=== PATIENT | male | born 1950 | race Caucasian/White ===

== ENCOUNTER 2023-08-24 09:39 | Emergency (ER) | payer MEDICARE, OTHER, SELFPAY ==
[2023-08-24] VITALS (18 sets, daily range): BP systolic 183–203; BP diastolic 97–98; PULSE 54–63; RESP 11–23; TEMP 36.6; O2SAT 92–94; BMI 34.2
--- NOTE | 2023-08-24 10:03 | ECG_ITS ---
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
[2023-08-24] MEDS: METHYLPREDNISOLONE SOD SUCC PF 125 MG/2 ML VIAL IVP (10:17)
[2023-08-24] MEDS: MORPHINE SULFATE 4 MG/ML VIAL IV (10:17)
[2023-08-24 10:18] LABS: Basophils Absolute Auto 0.1 10^3/uL (0.0-0.1); Basophils Percent Auto 1.1 % (0.2-2.0); Eosinophils Absolute Auto 0.2 10^3/uL (0.0-0.7); Eosinophils Percent Auto 2.4 % (0.9-7.0); Hematocrit 45.8 % (42.0-54.0); Hemoglobin 15.3 g/dL (14.0-18.0); Immature Granulocytes Abs Auto 0.02 10^3/uL (0.00-0.03); Immature Granulocytes Pct Auto 0.3 % (0.0-0.5); Lymphocytes Absolute Auto 1.5 10^3/uL (1.2-3.8); Lymphocytes Percent Auto 23.2 % (20.5-60.0); Mean Corpuscular HGB Conc 33.4 g/dL (29.9-35.2); Mean Corpuscular Hemoglobin 29.8 pg (25.9-34.0); Mean Corpuscular Volume 89.1 fL (80.0-94.0); Mean Platelet Volume 10.2 fL (9.5-13.5); Monocytes Absolute Auto 0.8 10^3/uL (0.3-0.8); Monocytes Percent Auto 12.5 % (1.7-12.0); Neutrophils Percent Auto 60.5 % (43.0-75.0); Platelet Count 235 10^3/uL (150-450); Red Blood Count 5.14 10^6/uL (4.70-6.10); Red Cell Distribution Width 14.2 % (11.0-15.0); White Blood Count 6.5 10^3/uL (4.0-11.0)
[2023-08-24 10:29] LABS: Anion Gap 14.1; BUN Creatinine Ratio 24.1; Calcium 8.8 mg/dL (8.5-10.1); Carbon Dioxide 26.2 mmol/L (21.0-32.0); Chloride 102 mmol/L (98-107); Estimated GFR (African America >60 (>=60); Estimated GFR (Non-African Ame >60 (>=60); Glucose 105 mg/dL (74-106); Potassium 4.3 mmol/L (3.5-5.1); Sodium 138 mmol/L (136-145)
[2023-08-24 10:47] LABS: Troponin I High Sensitivity 92.5 pg/mL (4.0-76.1)
--- NOTE | 2023-08-24 12:00 | ED_ITS ---
HPI - General Adult General Chief complaint: Headache Stated complaint: HEADACHE/ HIGH BLOOD PRESSURE Time Seen by Provider: 08/24/23 09:49 Source: patient and family Mode of arrival: Wheelchair Limitations: no limitations History of Present Illness HPI narrative: 72-year-old male presents for vague reasons. He seems to be complaining mostly of a headache that he has had every day. Initially he told me that was about 2 months but then he changed that to 6 months. He has had 3 emergency department visits at another hospital in the last week and he seen a neurologist. He states he had an MRI. No trauma fever or localized weakness. Related Data Home Medications Medication Instructions Recorded Confirmed acyclovir 400 mg tablet 400 mg PO Q12H 08/24/23 08/24/23 hydroxyzine HCl 25 mg tablet 25 mg PO Q8H 08/24/23 08/24/23 levofloxacin 500 mg tablet 500 mg PO Q24H 08/24/23 08/24/23 losartan 50 mg tablet 50 mg PO DAILY 08/24/23 08/24/23 tamsulosin 0.4 mg capsule 0.4 mg PO Q24H 08/24/23 08/24/23 tramadol 50 mg tablet 50 mg PO Q8H PRN pain 08/24/23 08/24/23 Previous Rx's Medication Instructions Recorded [id number]-sjkuihmwhnuma-dbrehphx 1 cap PO Q6H PRN pain 5 days #20 08/24/23 50 mg-300 mg-40 mg capsule caps (Fioricet) Allergies Allergy/AdvReac Type Severity Reaction Status Date / Time No Known Drug Allergies Allergy Verified 08/24/23 09:55 Review of Systems ROS Narrative A ten point review of systems is negative except as noted above. PFSH PFSH Social History Smoking status: Former smoker Exam Narrative Exam Narrative: Nurses note and vital signs reviewed and patient is not hypoxic. General: The patient appears well and in no apparent distress. He seems to prefer to keep his eyes closed. Skin: Warm, dry, no pallor noted. There is no rash noted. Head: Normocephalic, atraumatic Eye: Normal conjunctiva, no drainage, EOMI. PERRL Ears, Nose, Mouth, and Throat: oral mucosa is moist. Nares patent. Cardiovascular: Regular Rate and Rhythm Respiratory: Patient is in no distress, no accessory muscle use, lungs are clear to auscultation, no wheezing, rales or rhonchi Back: non-tender GI: Soft and nontender Musculoskeletal: The patient has no evidence of calf tenderness, symmetrical pulses noted bilaterally Neurological: A&O x4, normal speech Psychiatric: Mildly uncooperative. Evasive on answers. Constitutional Vital Signs, click to edit/add: Last Vital Signs Temp 97.8 F 08/24/23 09:49 Pulse 59 L 08/24/23 12:10 Resp 11 L 08/24/23 12:10 BP 188/98 H 08/24/23 12:00 Pulse Ox 93 L 08/24/23 11:20 O2 Del Method Room Air 08/24/23 09:49 Course Vital Signs Vital signs: Vital Signs Pulse Oximetry 94 L 08/24/23 09:48 Temperature 97.8 F 08/24/23 09:49 Pulse Rate 59 L 08/24/23 12:10 Respiratory Rate 11 L 08/24/23 12:10 Blood Pressure 188/98 H 08/24/23 12:00 Pulse Oximetry 93 L 08/24/23 11:20 Oxygen Delivery Method Room Air 08/24/23 09:49 Medical Decision Making MDM Narrative Medical decision making narrative: His workup is negative here. He refused a CAT scan. He states that he had one a few days ago. He seems to be feeling improved and is discharged home. He is going to see an ENT doctor in 2 days. He has been having these headaches for 6 months and saw a neurologist about some tremors but did not talk to the neurologist about the headaches. He is prescribed Fioricet. Treatment d iagnosis and follow-up were discussed with the patient Differential Diagnosis Differential Diagnosis: Chronic headaches, tension headache, cluster headache Lab Data Lab results reviewed: Yes I reviewed the patient's lab results Labs: Lab Results 08/24/23 08/24/23 Range/Units 10:00 11:33 WBC 6.5 (4.0-11.0) 10^3/uL RBC 5.14 (4.70-6.10) 10^6/uL Hgb 15.3 (14.0-18.0) g/dL Hct 45.8 (42.0-54.0) % MCV 89.1 (80.0-94.0) fL MCH 29.8 (25.9-34.0) pg MCHC 33.4 (29.9-35.2) g/dL RDW 14.2 (11.0-15.0) % Plt Count 235 (150-450) 10^3/uL MPV 10.2 (9.5-13.5) fL Neut % (Auto) 60.5 (43.0-75.0) % Lymph % (Auto) 23.2 (20.5-60.0) % Thayer % (Auto) 12.5 H (1.7-12.0) % Eos % (Auto) 2.4 (0.9-7.0) % Baso % (Auto) 1.1 (0.2-2.0) % Neut # (Auto) 4.0 (1.4-6.5) 10^3/uL Lymph # (Auto) 1.5 (1.2-3.8) 10^3/uL Thayer # (Auto) 0.8 (0.3-0.8) 10^3/uL Eos # (Auto) 0.2 (0.0-0.7) 10^3/uL Baso # (Auto) 0.1 (0.0-0.1) 10^3/uL Abs Immat Gran (auto) 0.02 (0.00-0.03) 10^3/uL Imm/Tot Granulo (auto) 0.3 (0.0-0.5) % Sodium 138 (136-145) mmol/L Potassium 4.3 (3.5-5.1) mmol/L Chloride 102 (98-107) mmol/L Carbon Dioxide 26.2 (21.0-32.0) mmol/L Anion Gap 14.1 BUN 19.0 H (7.0-18.0) mg/dL Creatinine 0.79 (0.70-1.30) mg/dL Est GFR ( Amer) >60 (>=60) Est GFR (Non-Af Amer) >60 (>=60) BUN/Creatinine Ratio 24.1 Glucose 105 (74-106) mg/dL Calcium 8.8 (8.5-10.1) mg/dL Troponin I High Sens 92.5 H* 88.1 H* (4.0-76.1) pg/mL Discharge Plan Discharge Stand Alone Forms: Portal Instructions Chief Complaint: Headache Clinical Impression: Chronic headache Patient Disposition: Home, Self-Care Time of Disposition Decision: 12:17 Condition: Good Mode of Transportation: Private Vehicle Prescriptions / Home Meds: New ocgeeqgejp-iiyivmtvdzoor-pqdi [Fioricet] 50-300-40 mg capsule 1 cap PO Q6H PRN (Reason: pain) 5 Days Qty: 20 0RF No Action tramadol 50 mg tablet 50 mg PO Q8H PRN (Reason: pain) tamsulosin 0.4 mg capsule 0.4 mg PO Q24H losartan 50 mg tablet 50 mg PO DAILY hydroxyzine HCl 25 mg tablet 25 mg PO Q8H levofloxacin 500 mg tablet 500 mg PO Q24H acyclovir 400 mg tablet 400 mg PO Q12H Instructions: Pain Management (ED), Chronic Pain (ED) Referrals: Physician,Non-Staff, MD [Primary Care Provider] - 1 week
[2023-08-24 12:01] LABS: Troponin I High Sensitivity 88.1 pg/mL (4.0-76.1)
== END 2023-08-24 12:30 | disposition home or self-care (01) ==
PROVIDERS: Emergency Provider Emergency Medicine
DX: R51.9 Headache, unspecified (principal); G89.29 Other chronic pain; Z79.899 Other long term (current) drug therapy; Z87.891 Personal history of nicotine dependence
CPT/HCPCS: 36415; 80048; 81001; 84484; 85025; 93005; 96374; 96375; 99284; J2930